=== PATIENT | female | born 1945 | race Caucasian/White ===

== ENCOUNTER 2022-04-19 11:16 | Emergency (ER) | payer OTHER ==
[~2022-04-19] VITALS: Ht 157.5 cm; Wt 70.3 kg
[~2022-04-19 11:16] MED LIST: ASPI81CT95 PO; ATOR20TA40 PO; AZIT250T4 PO; DOCU-299 PO; FURO-570 PO; FURO40TA9 PO; IBUP-2213 PO; LISI5TAB24 PO; METO50TA99 PO; MONT10TA35 PO; OSEL30CA2 PO
[2022-04-19 11:33] VITALS: BP 137/61
--- NOTE | 2022-04-19 11:39 | NUR ---
PT AMB TO BED 2.
--- NOTE | 2022-04-19 11:40 | NUR ---
77 Y/O FEMALE BIB SELF C/O DIFFICULTY BREATHING, CP X TODAY AND C/O COUGH X 1 WEEK. SEEN HERE 1 WEEK AGO FOR DIFFICULTY BREATHING. PT STATES SHE HAS HAD DIFFICULTY BREATHING FOR APPROX. 2 YRS SINCE SHE GOT COVID. LUNG CTA. O2 SAT 96% ROOM AIR. PT PLACE ON MONITOR. BED LOCKED IN LOWEST POSITION. BED RAIL X1. PMH: HTN, CHF, PRE DM
[2022-04-19] MEDS ORDERED: ALBUTEROL 0.083% 2.5 MG/3 ML NEBU INH ONE (12:50)
[2022-04-19 14:07] LABS: ALBUMIN 3.7 g/dL (3.4-5.0); ANION GAP 13.1 (8-16); ASPARTATE AMINOTRANSFERASE 32 U/L (15-37); CHLORIDE 114 mmol/L (98-107); CREATININE 0.8 mg/dL (0.6-1.3); GLUCOSE 118 mg/dL (74-106); POTASSIUM 4.1 mmol/L (3.5-5.1); SODIUM SERUM 145 mmol/L (136-145); TOTAL BILIRUBIN 0.6 mg/dL (0.0-1.0); UREA NITROGEN, BLOOD 20 mg/dL (7-18)
[2022-04-19 14:12] LABS: BASOPHILS % (AUTO) 0.4 % (0.0-2.0); EOSINOPHILS # (AUTO) 0.1 K/uL (0-0.4); EOSINOPHILS % (AUTO) 1.3 % (0.0-4.0); HEMOGLOBIN 12.8 g/dL (12.0-16.0); LYMPHOCYTES # (AUTO) 1.9 K/uL (2.5-16.5); LYMPHOCYTES % (AUTO) 24.9 % (20.5-51.1); MEAN CORPUSCULAR HEMOGLOBIN 28 pg (27-31); MEAN CORPUSCULAR HGB CONC 33 g/dL (33-37); MEAN CORPUSCULAR VOLUME 85.6 fL (80-94); MONOCYTES # (AUTO) 0.4 K/uL (0.8-1.0); MONOCYTES % (AUTO) 5.5 % (1.7-9.3); NEUTROPHILS # (AUTO) 5.3 K/uL (1.8-7.7); NEUTROPHILS % (AUTO) 67.9 % (42.2-75.2); PLATELET COUNT (AUTO) 274 K/uL (140-450); RED BLOOD CELL COUNT(AUTO) 4.55 MIL/uL (4.20-5.40); RED CELL DISTRIBUTION WIDTH 13.9 % (11.6-13.7); WHITE BLOOD COUNT (AUTO) 7.8 K/uL (4.8-10.8)
[2022-04-19 17:24] VITALS: BP 130/65
--- NOTE | 2022-04-19 17:31 | NUR ---
Patient discharged with v/s stable. Written and verbal after care instructions given and explained. Patient verbalized understanding. Ambulatory with steady gait. All questions addressed prior to discharge. Advised to follow up with PMD.
== END 2022-04-19 17:24 | disposition home or self-care (01) ==
LOC: MED 11:16
DX: R05.9 Cough, unspecified (principal); R06.02 Shortness of breath; R06.2 Wheezing; I11.0 Hypertensive heart disease with heart failure; I50.9 Heart failure, unspecified; Z79.899 Other long term (current) drug therapy; Z79.2 Long term (current) use of antibiotics; Z79.82 Long term (current) use of aspirin; Z79.1 Long term (current) use of non-steroidal anti-inflammatories (NSAID)
CPT/HCPCS: 36415; 71045; 80053; 81002; 83880; 84484; 85025; 93005; 94640; 99285; J7613; Q0092

== ENCOUNTER 2023-04-22 08:09 | Inpatient (IN) | payer OTHER ==
[2023-04-22] VITALS (7 sets, daily range): BP systolic 145–158; BP diastolic 89–96; PULSE 86–139; RESP 17–24; TEMP 97.1–98.4; O2SAT 94–98
[~2023-04-22] VITALS: Ht 142.2 cm; Wt 63.5 kg
[~2023-04-22 08:09] MED LIST changes: +MONT-72 PO; -MONT10TA35 PO
--- NOTE | 2023-04-22 08:30 | NUR ---
PATIENT PRESENTS TO ED WITH SOB WITH HISTORY OF HTN. PT STATES SHE FEELS LIKE SHE HAS PRESSURE ON HER CHEST MIDLINE. DENIES N/V/D; SKIN IS PINK/WARM/DRY; AAOX4 WITH EVEN AND STEADY GAIT; LUNGS SOUNDS DIMINISHED AND RALES HEARD BL; HR 117 PT HAS HAD LABS DRAWN, RT HAS BEEN CALLED AND PT HAS BEEN PLACED ON BIPAP PER PROVIDERS ORDERS. PT DENIES ANY FEVER, OR COUGH AT THIS TIME; PATIENT STATES PAIN OF 3/10 AT THIS TIME; VSS; PATIENT POSITIONED FOR COMFORT; HOB ELEVATED; BEDRAILS UP X2; BED DOWN. ER MD MADE AWARE OF PT STATUS.
[2023-04-22] MEDS ORDERED: AZITHROMYCIN 500 MG in DEXTROSE 5% 250 ML IV ONE (09:15)
[2023-04-22 09:23] LABS: BASOPHILS # (AUTO) 0.1 K/uL (0.00-0.22); BASOPHILS % (AUTO) 0.5 % (0.0-2.0); EOSINOPHILS # (AUTO) 0.1 K/uL (0-0.4); EOSINOPHILS % (AUTO) 1.2 % (0.0-4.0); HEMATOCRIT 37.4 % (36-48); HEMOGLOBIN 12.3 g/dL (12.0-16.0); LYMPHOCYTES # (AUTO) 0.9 K/uL (2.5-16.5); LYMPHOCYTES % (AUTO) 8.7 % (20.5-51.1); MEAN CORPUSCULAR HEMOGLOBIN 28 pg (27-31); MEAN CORPUSCULAR HGB CONC 33 g/dL (33-37); MEAN CORPUSCULAR VOLUME 86.6 fL (80-94); MONOCYTES # (AUTO) 0.4 K/uL (0.8-1.0); MONOCYTES % (AUTO) 4.1 % (1.7-9.3); NEUTROPHILS # (AUTO) 9.2 K/uL (1.8-7.7); NEUTROPHILS % (AUTO) 85.5 % (42.2-75.2); PLATELET COUNT (AUTO) 263 K/uL (140-450); RED BLOOD CELL COUNT(AUTO) 4.32 MIL/uL (4.20-5.40); RED CELL DISTRIBUTION WIDTH 15.6 % (11.6-13.7); WHITE BLOOD COUNT (AUTO) 10.8 K/uL (4.8-10.8)
[2023-04-22] MEDS ORDERED: cefTRIAXone 1,000 MG VIAL ONE (09:26)
[2023-04-22 09:41] LABS: PROTHROMBIN TIME 9.9 secs (10.8-13.4)
--- NOTE | 2023-04-22 09:41 | NUR ---
pt has respitory at bedside. pt is having abg test. pt tolerated well.
[2023-04-22 09:42] LABS: BILIRUBIN,URINE NEGATIVE (NEGATIVE); BLOOD, URINE TRACE-I (NEGATIVE); COLOR,URINE YELLOW (YELLOW); LEUKOCYTE ESTERASE ,URINE TRACE (NEGATIVE); NITRITE, URINE NEGATIVE (NEGATIVE); PH,URINE 6.5 (5.0-9.0); UGLUCOSE NEGATIVE (NEGATIVE)
[2023-04-22 09:49] LABS: ALBUMIN 3.5 g/dL (3.4-5.0); ANION GAP 13.7 (8-16); ASPARTATE AMINOTRANSFERASE 28 U/L (15-37); CARBON DIOXIDE 25.4 mmol/L (21-32); CHLORIDE 110 mmol/L (98-107); CREATININE 0.7 mg/dL (0.6-1.3); GLUCOSE 174 mg/dL (74-106); POTASSIUM 4.1 mmol/L (3.5-5.1); SODIUM SERUM 145 mmol/L (136-145); TOTAL BILIRUBIN 0.9 mg/dL (0.0-1.0); UREA NITROGEN, BLOOD 20 mg/dL (7-18)
[2023-04-22 10:00] LABS: APPEARANCE,URINE SLIGHTLY HAZY (CLEAR)
[2023-04-22] MEDS ORDERED: AZITHROMYCIN 500 MG INJ VIAL IV ONE (10:05)
--- NOTE | 2023-04-22 10:40 | NUR ---
PTS FAMILY HAS BEEN UPDATED PER PROVIDERS DX. PT HAS A HISTORY OF CHF. PT IS BEING TREATED FOR SIGNS OF PNEUMONIA AND CHF EXERABATION. PT IS ON MONITOR WILL CONTINUE TO MONITOR PT FOR ANY CHANGES.
[2023-04-22] MEDS ORDERED: FUROSEMIDE 100 MG/10 ML VIAL IVP ONE (10:55)
[2023-04-22] MEDS ORDERED: ASPIRIN 325 MG TAB PO ONE (11:50)
[2023-04-22] MEDS ORDERED: ASPIRIN 325 MG TAB ONE (11:51)
--- NOTE | 2023-04-22 12:07 | NUR ---
pt has been placed on purwick for input output monitoring of lasix
[2023-04-22] MEDS ORDERED: KETOROLAC 30 MG/ML VIAL ONE (13:08)
--- NOTE | 2023-04-22 14:32 | NUR ---
Pt had soiled diaper. Changed pts diaper repositioned pt for comfortable measures.
--- NOTE | 2023-04-22 15:31 | NUR ---
CHECKED PT ON BiPAP. LEAK WAS TOO HIGH DECREASED TO 24. NO RESPIRATORY DISTRESS NOTED. RESTING COMFORTABLY. WILL REASSESS NEED FOR BiPAPAT NEXT CHECK. WILL CONTINUE TO MONITOR PT.
[2023-04-22] MEDS ORDERED: MAG SULF 2000 MG/WATER PREMIX 50 ML IV PRN (16:00)
[2023-04-22] MEDS ORDERED: ACETAMINOPHEN 325 MG TAB PO PRN (16:00)
[2023-04-22] MEDS ORDERED: HYDROcodone/APAP 5/325 MG 1 TAB TAB PO PRN (16:00)
[2023-04-22] MEDS ORDERED: KCL 20 MEQ IN 100 mL PREMIX 200 ML IV PRN (16:00)
[2023-04-22] MEDS ORDERED: MAGNESIUM OXIDE 400 MG TAB PO PRN (16:00)
[2023-04-22] MEDS ORDERED: MORPHINE SULFATE 2 MG/ML SYR IVP PRN (16:00)
[2023-04-22] MEDS ORDERED: POTASSIUM CHLORIDE 10 MEQ TABER PO PRN (16:00)
[2023-04-22] MEDS ORDERED: hydrALAZINE 20 MG/ML VIAL IVP PRN (16:05)
--- NOTE | 2023-04-22 16:44 | NUR ---
CALLED TO BEDSIDE TO ASSESS PT. SATURATION WAS 99%, BS CLEAR. TOOK PT OFF BiPAP AND PLACED ON 2L NC. PT SATURATION WAS AT 98%. WILL CONTINUE TO MONITOR PT.
[2023-04-22] MEDS ORDERED: ATOR10TA PO (16:57)
[2023-04-22] MEDS ORDERED: PRED20TA5 PO (16:57)
--- NOTE | 2023-04-22 18:20 | NUR ---
PT HAS BEEN REASSED BY PROVIDER. PT IS NO LONGER ON BIPAP. PT IS ON 2 LITERS OF ROOM AIR. PTS FAMILY HAS BEEN MADE AWARE THAT SHE IS BEING ADMITTED. PTS VITALS RECORDED.
--- NOTE | 2023-04-22 19:01 | NUR ---
PT HAS BEEN OFFERED MEAL. PT ATE ALL OF HER MEAL. PT DIAPPER CHANGED FOR SOILAGE. PT STILL ON PURWICK.
--- NOTE | 2023-04-22 19:02 | NUR ---
CALLED FOR REPORT 1850 IVETH DAVENPORT STATED JENNIFER IS BUSY CALL BACK IN TEN MINUTES. CALLED AGAIN AT 1903 NO ANSWER.
--- NOTE | 2023-04-22 19:30 | NUR ---
RECEIVED REPORT FROM ER NURSE FOR CONTINUITY OF CARE. PATIENT IS AWAKE, ALERT AND ORIENTED X4, [place] SPEAKING BUT DOES UNDERSTAND SOME [place]OREAN. CURRENTLY ON 2L NASAL CANULA WITH NO APPARENT SIGNS OF ACUTE RESPIRATORY DISTRESS NOTED. PATIENT STATES SHE IS ABLE TO AMBULATE BUT IS CURRENTLY USING A PUREWICK AND IS CONTINENT OF URINE. IV SITE LOCATED RIGHT FOREARM AND LEFT AC, BOTH 20 GAUGE, INTACT AND PATENT. PATIENT BLADDER NOTED TO BE PROLONGED, AND HAS MULTIPLE BRUISES ACROSS UPPER EXTREMITIES. ORIENTED PATIENT TO BEDROOM, CALL LIGHT, AND TV CONTROLS. CALL LIGHT PLACED WITHIN REACH, SAFETY MEASURES IN PLACE, WILL MONITOR THROUGHOUT SHIFT.
--- NOTE | 2023-04-22 19:45 | NUR ---
BEDSIDE REPORT GIVEN IVETH SAINZ. TRANSFER OF CARE AT 1930
[2023-04-22] MEDS: METOPROLOL 50 MG TAB PO SCH (20:47)
--- NOTE | 2023-04-22 21:30 | NUR ---
SCHEDULED MEDICATIONS ADMINISTERED. PT TOLERATED WELL. NO OTHER SIGNS OF DISTRESS NOTED, WILL CONTINUE TO MONITOR.
[2023-04-22] MEDS: FUROSEMIDE 40 MG/4 ML VIAL IVP SCH (21:31)
[2023-04-23] VITALS (10 sets, daily range): BP systolic 99–136; BP diastolic 62–82; PULSE 68–92; RESP 18–20; TEMP 97.3–98.6; O2SAT 95–98
--- NOTE | 2023-04-23 01:21 | NUR ---
PATIENT RESTING COMFORTABLY. PUREWICK SUCTIONING WELL. VITAL SIGNS TAKEN, ALL WITHIN NORMAL LIMITS.
[2023-04-23 05:17] LABS: BASOPHILS # (AUTO) 0.1 K/uL (0.00-0.22); BASOPHILS % (AUTO) 0.8 % (0.0-2.0); EOSINOPHILS # (AUTO) 0.3 K/uL (0-0.4); EOSINOPHILS % (AUTO) 3.9 % (0.0-4.0); HEMATOCRIT 39.5 % (36-48); HEMOGLOBIN 13.2 g/dL (12.0-16.0); LYMPHOCYTES # (AUTO) 1.7 K/uL (2.5-16.5); LYMPHOCYTES % (AUTO) 22.8 % (20.5-51.1); MEAN CORPUSCULAR HEMOGLOBIN 29 pg (27-31); MEAN CORPUSCULAR HGB CONC 34 g/dL (33-37); MEAN CORPUSCULAR VOLUME 85.3 fL (80-94); MONOCYTES # (AUTO) 0.6 K/uL (0.8-1.0); MONOCYTES % (AUTO) 8.8 % (1.7-9.3); NEUTROPHILS # (AUTO) 4.7 K/uL (1.8-7.7); NEUTROPHILS % (AUTO) 63.7 % (42.2-75.2); PLATELET COUNT (AUTO) 275 K/uL (140-450); RED BLOOD CELL COUNT(AUTO) 4.64 MIL/uL (4.20-5.40); RED CELL DISTRIBUTION WIDTH 15.3 % (11.6-13.7); WHITE BLOOD COUNT (AUTO) 7.4 K/uL (4.8-10.8)
[2023-04-23 05:55] LABS: ALBUMIN 3.5 g/dL (3.4-5.0); ANION GAP 11.8 (8-16); ASPARTATE AMINOTRANSFERASE 22 U/L (15-37); CARBON DIOXIDE 29.8 mmol/L (21-32); CHLORIDE 107 mmol/L (98-107); CREATININE 0.9 mg/dL (0.6-1.3); GLUCOSE 157 mg/dL (74-106); MAGNESIUM 2.2 mg/dL (1.8-2.4); POTASSIUM 3.6 mmol/L (3.5-5.1); SODIUM SERUM 145 mmol/L (136-145); TOTAL BILIRUBIN 0.9 mg/dL (0.0-1.0); UREA NITROGEN, BLOOD 18 mg/dL (7-18)
--- NOTE | 2023-04-23 07:49 | NUR ---
ENDORSED TO DAY SHIFT NURSE FOR CONTINUITY OF CARE. PT IS STABLE AT THIS TIME.
[2023-04-23] MEDS: FUROSEMIDE 40 MG/4 ML VIAL IVP SCH (09:30)
--- NOTE | 2023-04-23 09:30 | NUR ---
PATIENT HAS BEEN SCREENED AND CATEGORIZED MODERATE NUTRITION RISK. PATIENT WILL BE SEEN WITHIN 3-5 DAYS OF ADMISSION. 04/22/23-04/27/[address]
[2023-04-23] MEDS: ECOTRIN 81 MG TABEC PO SCH (09:34)
[2023-04-23] MEDS: lisinopriL 5 MG TAB PO SCH (09:35)
[2023-04-23] MEDS: METOPROLOL 50 MG TAB PO SCH (09:35)
[2023-04-23] MEDS: ATORVASTATIN 20 MG TAB PO SCH (09:36)
[2023-04-23] MEDS: ENOXAPARIN 40 MG/0.4 ML SYR SUBQ SCH (09:38)
--- NOTE | 2023-04-23 15:04 | NUR ---
RECEIVE PATIENT FROM PM SHIFT NURSE THAT 78YRS OLD [place] SPEAKING PATIENT COME FROM HOME FOR SOB WITH HX OF COVID POSITIVE, HTN, HLD, CHT. PATIENT'S TROPONIN I=71, AMBULATORY TO BATHROOM & ON PUREWICK. 2 LITER OXYGEN VIA NC. SALINE LOCK AT LAC & R. FOREARM. MULTIPLE BRUISE NOTED MIGHT 12/01 AGE RELATED FRAGILE SKIN CONDITION. AROUND 1500, NURSE EMPTY 900 URINE AND PATIENT WENT BATHROOM FOR BM TWICE. WILL CONTINUE TO MONITOR Addendum: 04/23/23 at 1843 by Meggan Grimes RN AT 184, PATIENT HAD BM X4 DURING 12 HOUR INTERVAL. PER PATIENT, HER MORNING TIME'S BM IS SMALL AMOUNT. AFTER DINNER, PATIENT HAD A MODERATE AMOUNT LOSE STOOL PASS OUT. ON-CALL MD LUCAS WILL CONTINUE TO MONITOR. Addendum: 04/23/23 at 1932 by Meggan Grimes RN ENDORSE PATIENT IN STABLE CONDITION TO PM SHIFT NURSE
--- NOTE | 2023-04-23 20:00 | NUR ---
BP 99/62 , HR 74 , PT HAS WATERY BM 5X - FOR C DIFF WILL MONITOR THE PROGRESS OF WATERY BM AND THE BP PRIOR TO GIVE LASIX AND METOPROLOL. INFORMED CHARGE NURSE .
[2023-04-24] VITALS (8 sets, daily range): BP systolic 106–136; BP diastolic 53–75; PULSE 66–86; RESP 17–20; TEMP 97.9–98.5; O2SAT 94–97
--- NOTE | 2023-04-24 | NUR ---
NO PROGRESSING WATERY BM , BP 126 / 75 , TX 86 - WILL GIVE THE LASIX TIV AND METOPROLOL TABLET - WILL INFORM PHARMACIST TO ADJUST THE TIME - WILL ENDORSE .
[2023-04-24] MEDS: FUROSEMIDE 40 MG/4 ML VIAL IVP SCH ×2 (00:29→09:31)
[2023-04-24] MEDS: METOPROLOL 50 MG TAB PO SCH ×2 (00:30→09:32)
--- NOTE | 2023-04-24 04:00 | NUR ---
ROUNDS , NO S/SX OF ACUTE DISTRESS NOTED , WILL CONT. TO MONITOR
--- NOTE | 2023-04-24 06:00 | NUR ---
AWAKE , NO COMPLAIN MADE , O2 SAT WNL .
[2023-04-24 06:56] LABS: ALBUMIN 3.3 g/dL (3.4-5.0); ANION GAP 10.7 (8-16); ASPARTATE AMINOTRANSFERASE 20 U/L (15-37); CARBON DIOXIDE 29.9 mmol/L (21-32); CHLORIDE 107 mmol/L (98-107); CREATININE 0.8 mg/dL (0.6-1.3); GLUCOSE 143 mg/dL (74-106); MAGNESIUM 2.3 mg/dL (1.8-2.4); POTASSIUM 3.6 mmol/L (3.5-5.1); SODIUM SERUM 144 mmol/L (136-145); TOTAL BILIRUBIN 0.7 mg/dL (0.0-1.0); UREA NITROGEN, BLOOD 24 mg/dL (7-18)
--- NOTE | 2023-04-24 07:19 | NUR ---
ENDORSED PT FOR CONT. OF CARE . INFORMED IVETH CAMACHO I GAVE THE METOPROLOL AND LASIX PAST 0000 , WILL INFORM PHARMACIST Addendum: 04/24/23 at 0746 by Gely Hassan RN informed pharmacist Aguila padilla
[2023-04-24 09:13] LABS: BASOPHILS % (AUTO) 0.6 % (0.0-2.0); EOSINOPHILS # (AUTO) 0.3 K/uL (0-0.4); HEMATOCRIT 40.1 % (36-48); HEMOGLOBIN 13.2 g/dL (12.0-16.0); LYMPHOCYTES # (AUTO) 1.8 K/uL (2.5-16.5); MEAN CORPUSCULAR HEMOGLOBIN 28 pg (27-31); MEAN CORPUSCULAR HGB CONC 33 g/dL (33-37); MEAN CORPUSCULAR VOLUME 85.7 fL (80-94); MONOCYTES # (AUTO) 0.6 K/uL (0.8-1.0); MONOCYTES % (AUTO) 8.2 % (1.7-9.3); NEUTROPHILS # (AUTO) 4.5 K/uL (1.8-7.7); NEUTROPHILS % (AUTO) 62.2 % (42.2-75.2); PLATELET COUNT (AUTO) 290 K/uL (140-450); RED BLOOD CELL COUNT(AUTO) 4.68 MIL/uL (4.20-5.40); RED CELL DISTRIBUTION WIDTH 15.2 % (11.6-13.7); WHITE BLOOD COUNT (AUTO) 7.3 K/uL (4.8-10.8)
[2023-04-24] MEDS: ENOXAPARIN 40 MG/0.4 ML SYR SUBQ SCH (09:28)
[2023-04-24] MEDS: lisinopriL 5 MG TAB PO SCH (09:30)
[2023-04-24] MEDS: ECOTRIN 81 MG TABEC PO SCH (09:31)
[2023-04-24] MEDS: ATORVASTATIN 20 MG TAB PO SCH (09:32)
--- NOTE | 2023-04-24 13:41 | NUR ---
DC PL[age] YRS OLD FEMALE PATIENT WAS ADMITTED FROM HOME WITH A DX OF CHF EXACERBATION. PATIENT HAS A HX OF HTN, MITRAL PROLAPSE AND HFPEF. CXR SHOWED CARDIOMEGALY BILATERAL LOWER LOBE CONSOLIDATION COULD REPRESENT PNEUMONIA VX PULMONARY EDEMA. NEGATIVE FOR PE. CONTINUED HOME MEDS AND IV LASIX. CONSULTED WITH CARDIO. DC PLAN TO GO HOME WHEN STABLE. CM TO FOLLOW Addendum: 04/24/23 at 1555 by SOILA MENDOZA CM RECEIVED ORDER TO SUBMIT A REQUEST FOR CARDIOLOGY REFERRAL TO SEE DR CHRISTINA KULKARNI WITHIN 1-2 WEEKS. FAXED ORDER TO [facility] [employer] FAX# Addendum: 04/24/23 at 1557 by SOILA MENDOZA CM CALLED DR CHRISTIANSEN[facility]S OFFICE LOCATED AT [address] [place] [address] [address] [place] [address]. OFFICE DIDN'T ANSWER AND IT ROUTED ME TO THE OVER FLOW VIDEO ARCADE MANAGER, MESSAGE REGARDING A FOLLOW UP APPOINTMENT WAS LEFT AND I WILL BE GETTING A CALL BACK TO BOOK APPOINTMENT. WILL FOLLOW UP WITH UPDATES Addendum: 04/25/23 at 1056 by SOILA MENDOZA CM CALLED DR CHRISTIANSEN'S OFFICE . SPOKE WITH LOUIE WHO WAS NOT ABLE TO FIND A APPOINTMENT IN [place] SO ONE WAS MADE FOR THE [place] LOCATION. PATIENT HAS A HOSPITAL FOLLOW UP APPOINTMENT WITH DR DEY FOR 04/27/2023 AT 1340 LOCATED AT [address] [facility] [id number]. CALLED PTN DAUGHTER [id number] WHO DIDN'T ANSWER BUT WAS ABLE TO LEAVE A VOICE MAIL REGARDING THE ABOVE INFORMATION.
--- NOTE | 2023-04-24 16:46 | NUR ---
DISCHARGE PATIENT IN STABLE CONDITION PER HOSPITAL PCP ORDER. FORMED STOOL SPECIMEN COLLECTED PRIOR DISCHARGE CONSENT SIGN; DISCHARGE INSTRUCTION GIVE WITH JAYSONMagalis #[id number] FILM PROJECTOR OPERATOR'S HELP. NURSE WENT OVER PHARMACY INFORMATION WHEN DAUGHTER IS HERE. IV ACCESS, WRIST BAND, TEL. MONITOR, AND PUREWICK REMOVE BEFORE PATIENT CHANGE HER CLOTHES TO GO HOME. Addendum: 04/24/23 at 1755 by Meggan Grimes RN AROUND 1730, PATIENT'S DAUGHTER BROUGHT PATIENT'S CLOTHES TO HOSPITAL AND PATIENT READY TO GO HOME. NURSE HELP PATIENT FINISH DRESSING AND WHEEL PATIENT OUT THE FACILITY.
--- NOTE | 2023-04-24 17:04 | NUR ---
Dental Office Receptionist [employer] conducted this interview with dtr. Lawler who had just arrived for a visit with pt. Pt was about to be discharged from hospital. Dtr. stated she is pts. POA and pt. and her reside together. METAL AND PLASTIC HEATER was in the middle of this discharge assessment when the Rn came in to review discharge paperwork and instructions with pt and dtr. METAL AND PLASTIC HEATER also saw Dr. georges in to meet with family. METAL AND PLASTIC HEATER left and came back. Pt. was getting dressed to leave. Addendum: 04/24/23 at 1709 by Arelis Kim CM ancillary services manager therapy Dtzoila Lawler stated pt. has a primar , Dr. Simon in [place],
== END 2023-04-24 18:00 | disposition home or self-care (01) | DRG 280 ==
LOC: MED 08:09 → MMU 15:59 → MTU 17:36
PROVIDERS: ADMIT Internal Medicine; ATTEND Internal Medicine
DX: I11.0 Hypertensive heart disease with heart failure (principal); I21.A1 Myocardial infarction type 2; I50.33 Acute on chronic diastolic (congestive) heart failure; J96.01 Acute respiratory failure with hypoxia; N39.0 Urinary tract infection, site not specified; R65.10 Systemic inflammatory response syndrome (SIRS) of non-infectious origin without acute organ dysfunction; I34.1 Nonrheumatic mitral (valve) prolapse; E78.5 Hyperlipidemia, unspecified; Z79.899 Other long term (current) drug therapy
CPT/HCPCS: 36415; 36600; 71045; 80053; 81001; 82550; 82553; 82803; 83605; 83735; 83874; 83880; 84484; 85025; 85610; 85730; 87040; 87081; 87086; 93005; 94660; 96365; 96367; 99291; 99292; J0456; J0696; J1650; J1885; J1940; Q0092

== ENCOUNTER 2023-09-02 08:03 | Inpatient (IN) | payer OTHER ==
[~2023-09-02] VITALS: Ht 157.5 cm; Wt 72.6 kg
[~2023-09-02 08:03] MED LIST changes: +ATOR10TA PO; -IBUP-2213 PO; -OSEL30CA2 PO
[2023-09-02 08:13] VITALS: BP 163/94; PULSE 122; RESP 22; TEMP 98.7; O2SAT 93
[2023-09-02] MEDS ORDERED: NITROGLYCERIN 0.4 MG TAB SL ONE ×2 (08:20→08:50)
[2023-09-02] MEDS ORDERED: ASPIRIN 81 MG TAB.CHEW PO ONE (08:20)
[2023-09-02 08:44] LABS: BASOPHILS % (AUTO) 0.3 % (0.0-2.0); EOSINOPHILS # (AUTO) 0.1 K/uL (0-0.4); EOSINOPHILS % (AUTO) 1.2 % (0.0-4.0); HEMATOCRIT 42.1 % (36-48); HEMOGLOBIN 13.7 g/dL (12.0-16.0); LYMPHOCYTES # (AUTO) 1.6 K/uL (2.5-16.5); LYMPHOCYTES % (AUTO) 19.8 % (20.5-51.1); MEAN CORPUSCULAR HEMOGLOBIN 28 pg (27-31); MEAN CORPUSCULAR HGB CONC 33 g/dL (33-37); MONOCYTES # (AUTO) 0.3 K/uL (0.8-1.0); MONOCYTES % (AUTO) 4.2 % (1.7-9.3); NEUTROPHILS # (AUTO) 6.1 K/uL (1.8-7.7); NEUTROPHILS % (AUTO) 74.5 % (42.2-75.2); PLATELET COUNT (AUTO) 274 K/uL (140-450); RED BLOOD CELL COUNT(AUTO) 4.84 MIL/uL (4.20-5.40); RED CELL DISTRIBUTION WIDTH 15.3 % (11.6-13.7); WHITE BLOOD COUNT (AUTO) 8.2 K/uL (4.8-10.8)
[2023-09-02 08:57] LABS: ALANINE AMINOTRANSFERASE 49 U/L (12-78); ALBUMIN 4.1 g/dL (3.4-5.0); ALKALINE PHOSPHATASE 147 U/L (50-136); ANION GAP 16.3 (8-16); ASPARTATE AMINOTRANSFERASE 21 U/L (15-37); CALCIUM 8.9 mg/dL (8.5-10.1); CARBON DIOXIDE 24.8 mmol/L (21-32); CHLORIDE 109 mmol/L (98-107); GLUCOSE 199 mg/dL (74-106); POTASSIUM 3.1 mmol/L (3.5-5.1); SODIUM SERUM 147 mmol/L (136-145); TOTAL BILIRUBIN 1.1 mg/dL (0.0-1.0); TOTAL PROTEIN, SERUM 7.4 g/dL (6.4-8.2); UREA NITROGEN, BLOOD 19 mg/dL (7-18)
[2023-09-02] MEDS ORDERED: FUROSEMIDE 20 MG/2 ML VIAL IVP ONE (09:20)
[2023-09-02 10:57] LABS: APPEARANCE,URINE CLEAR (CLEAR); BILIRUBIN,URINE NEGATIVE (NEGATIVE); BLOOD, URINE NEGATIVE (NEGATIVE); COLOR,URINE YELLOW (YELLOW); LEUKOCYTE ESTERASE ,URINE NEGATIVE (NEGATIVE); NITRITE, URINE NEGATIVE (NEGATIVE); PROTEIN,URINE NEGATIVE (NEGATIVE); UGLUCOSE NEGATIVE (NEGATIVE); UROBILINOGEN,URINE 0.2 EU/dL (0.2 - 1)
[2023-09-02] MEDS ORDERED: PANT40EC PO (13:14)
[2023-09-02] MEDS ORDERED: ALBU0.0912 INH (13:14)
[2023-09-02] MEDS ORDERED: BREO ELLIPTA INHALER (13:14)
[2023-09-02 16:16] VITALS: RESP 20; O2SAT 99
[2023-09-02 20:00] VITALS: BP 143/79; PULSE 108; PULSE 87; RESP 16; RESP 17; TEMP 97.2; O2SAT 95; O2SAT 99
[2023-09-02 20:53] VITALS: BP 152/75; PULSE 89; O2SAT 95
[2023-09-02] MEDS: METOPROLOL 50 MG TAB PO SCH (20:54)
[2023-09-02] MEDS: MONTELUKAST SODIUM 10 MG TAB PO SCH (20:55)
[2023-09-03] VITALS (9 sets, daily range): BP systolic 112–154; BP diastolic 59–82; PULSE 68–92; RESP 16–18; TEMP 97.2–98.2; O2SAT 91–98
[2023-09-03] MEDS ORDERED: MORPHINE SULFATE 2 MG/ML SYR IVP PRN ×2 (07:45)
[2023-09-03] MEDS ORDERED: DOCUSATE SODIUM 100 MG GELCAP PO PRN ×2 (07:45)
[2023-09-03] MEDS ORDERED: ONDANSETRON 4 MG/2 ML VIAL IVP PRN ×2 (07:45)
[2023-09-03] MEDS ORDERED: ACETAMINOPHEN 325 MG TAB PO PRN ×2 (07:45)
[2023-09-03] MEDS ORDERED: POTASSIUM CHLORIDE 10 MEQ TABER PO PRN ×2 (07:45)
[2023-09-03] MEDS ORDERED: ZOLPIDEM 10 MG TAB PO PRN (07:45)
[2023-09-03] MEDS ORDERED: MAG SULF 2000 MG/WATER PREMIX 50 ML IV PRN ×2 (08:00)
[2023-09-03] MEDS: ATORVASTATIN 20 MG TAB PO SCH (08:48)
[2023-09-03] MEDS: ASPIRIN 81 MG TAB.CHEW PO SCH (08:48)
[2023-09-03] MEDS: PANTOPRAZOLE 40 MG TABEC PO SCH (08:49)
[2023-09-03] MEDS: lisinopriL 5 MG TAB PO SCH (08:49)
[2023-09-03] MEDS: METOPROLOL 50 MG TAB PO SCH ×2 (08:49→21:20)
[2023-09-03] MEDS ORDERED: FUROSEMIDE 40 MG TAB PO SCH (09:00)
[2023-09-03] MEDS: MONTELUKAST SODIUM 10 MG TAB PO SCH (21:20)
[2023-09-04 04:00] VITALS: BP 110/68; PULSE 81; RESP 18; TEMP 97.5; O2SAT 97
[2023-09-04 07:00] LABS: BASOPHILS % (AUTO) 0.6 % (0.0-2.0); EOSINOPHILS # (AUTO) 0.2 K/uL (0-0.4); EOSINOPHILS % (AUTO) 3.2 % (0.0-4.0); HEMATOCRIT 38.9 % (36-48); HEMOGLOBIN 12.9 g/dL (12.0-16.0); LYMPHOCYTES # (AUTO) 1.2 K/uL (2.5-16.5); LYMPHOCYTES % (AUTO) 16.2 % (20.5-51.1); MEAN CORPUSCULAR HEMOGLOBIN 29 pg (27-31); MEAN CORPUSCULAR HGB CONC 33 g/dL (33-37); MEAN CORPUSCULAR VOLUME 86.7 fL (80-94); MONOCYTES # (AUTO) 0.5 K/uL (0.8-1.0); MONOCYTES % (AUTO) 6.6 % (1.7-9.3); NEUTROPHILS # (AUTO) 5.5 K/uL (1.8-7.7); NEUTROPHILS % (AUTO) 73.4 % (42.2-75.2); PLATELET COUNT (AUTO) 243 K/uL (140-450); RED BLOOD CELL COUNT(AUTO) 4.48 MIL/uL (4.20-5.40); RED CELL DISTRIBUTION WIDTH 14.5 % (11.6-13.7); WHITE BLOOD COUNT (AUTO) 7.5 K/uL (4.8-10.8)
[2023-09-04 07:07] LABS: ANION GAP 13.8 (8-16); CALCIUM 8.5 mg/dL (8.5-10.1); CHLORIDE 111 mmol/L (98-107); CREATININE 0.9 mg/dL (0.6-1.3); GLUCOSE 144 mg/dL (74-106); POTASSIUM 3.8 mmol/L (3.5-5.1); SODIUM SERUM 146 mmol/L (136-145); UREA NITROGEN, BLOOD 20 mg/dL (7-18)
[2023-09-04 08:00] VITALS: PULSE 67; RESP 18; RESP 19; O2SAT 97
[2023-09-04] MEDS: ATORVASTATIN 20 MG TAB PO SCH (08:59)
[2023-09-04] MEDS: lisinopriL 5 MG TAB PO SCH (08:59)
[2023-09-04] MEDS: METOPROLOL 50 MG TAB PO SCH ×2 (08:59→21:06)
[2023-09-04] MEDS ORDERED: FUROSEMIDE 40 MG/4 ML VIAL IVP SCH (09:00)
[2023-09-04] MEDS: PANTOPRAZOLE 40 MG TABEC PO SCH (09:00)
[2023-09-04] MEDS ORDERED: BUDESONIDE 0.25 MG/2 ML NEBU INH SCH (09:00)
[2023-09-04] MEDS: ASPIRIN 81 MG TAB.CHEW PO SCH (09:00)
[2023-09-04 20:00] VITALS: BP 111/65; PULSE 68; RESP 18; TEMP 96.5; O2SAT 97
[2023-09-04] MEDS: MONTELUKAST SODIUM 10 MG TAB PO SCH (21:07)
[2023-09-05 04:00] VITALS: BP 114/52; PULSE 62; RESP 18; TEMP 96.5; O2SAT 97
[2023-09-05 07:03] LABS: BASOPHILS % (AUTO) 0.4 % (0.0-2.0); EOSINOPHILS # (AUTO) 0.2 K/uL (0-0.4); EOSINOPHILS % (AUTO) 2.7 % (0.0-4.0); HEMATOCRIT 39.6 % (36-48); HEMOGLOBIN 13.1 g/dL (12.0-16.0); LYMPHOCYTES # (AUTO) 1.4 K/uL (2.5-16.5); LYMPHOCYTES % (AUTO) 14.9 % (20.5-51.1); MEAN CORPUSCULAR HEMOGLOBIN 29 pg (27-31); MEAN CORPUSCULAR HGB CONC 33 g/dL (33-37); MEAN CORPUSCULAR VOLUME 86.6 fL (80-94); MONOCYTES # (AUTO) 0.6 K/uL (0.8-1.0); MONOCYTES % (AUTO) 6.7 % (1.7-9.3); NEUTROPHILS # (AUTO) 6.9 K/uL (1.8-7.7); NEUTROPHILS % (AUTO) 75.3 % (42.2-75.2); PLATELET COUNT (AUTO) 241 K/uL (140-450); RED BLOOD CELL COUNT(AUTO) 4.57 MIL/uL (4.20-5.40); RED CELL DISTRIBUTION WIDTH 14.5 % (11.6-13.7); WHITE BLOOD COUNT (AUTO) 9.2 K/uL (4.8-10.8)
[2023-09-05 07:14] LABS: ANION GAP 12.1 (8-16); CALCIUM 8.7 mg/dL (8.5-10.1); CARBON DIOXIDE 27.7 mmol/L (21-32); CHLORIDE 109 mmol/L (98-107); CREATININE 0.9 mg/dL (0.6-1.3); GLUCOSE 140 mg/dL (74-106); POTASSIUM 3.8 mmol/L (3.5-5.1); SODIUM SERUM 145 mmol/L (136-145); UREA NITROGEN, BLOOD 25 mg/dL (7-18)
[2023-09-05 08:00] VITALS: PULSE 74; RESP 18; O2SAT 95
[2023-09-05] MEDS: METOPROLOL 50 MG TAB PO SCH (08:32)
[2023-09-05] MEDS: ASPIRIN 81 MG TAB.CHEW PO SCH (08:32)
[2023-09-05] MEDS: PANTOPRAZOLE 40 MG TABEC PO SCH (08:34)
[2023-09-05] MEDS: lisinopriL 5 MG TAB PO SCH (08:34)
[2023-09-05] MEDS: ATORVASTATIN 20 MG TAB PO SCH (08:36)
[2023-09-05] MEDS ORDERED: ENOXAPARIN 40 MG/0.4 ML SYR SUBQ SCH (09:00)
[2023-09-05 16:22] VITALS: BP 114/52; PULSE 74; RESP 18; TEMP 96.5
== END 2023-09-05 16:50 | disposition home or self-care (01) | DRG 291 ==
LOC: MED 08:03 → MTU 11:27
PROVIDERS: ADMIT Hospitalist; ATTEND Hospitalist
DX: I11.0 Hypertensive heart disease with heart failure (principal); I50.33 Acute on chronic diastolic (congestive) heart failure; R07.89 Other chest pain; E87.6 Hypokalemia; I95.1 Orthostatic hypotension; K21.9 Gastro-esophageal reflux disease without esophagitis; R73.03 Prediabetes; I34.0 Nonrheumatic mitral (valve) insufficiency; E78.5 Hyperlipidemia, unspecified; Z79.899 Other long term (current) drug therapy; Z79.82 Long term (current) use of aspirin
CPT/HCPCS: 36415; 71045; 80048; 80053; 81003; 83735; 83880; 84484; 85025; 87081; 93005; 96374; 99291; J1650; J1940; J7626